=== PATIENT | female | born 1980 | race Caucasian/White ===

== ENCOUNTER 2022-10-28 20:05 | Emergency (ER) | payer MEDICAID ==
[~2022-10-28] VITALS: Ht 165.1 cm; Wt 78.0 kg
[2022-10-28 21:18] VITALS: BP 117/72
--- NOTE | 2022-10-28 21:22 | NUR ---
pt to bed 04.
--- NOTE | 2022-10-28 21:31 | NUR ---
c/o n/v/d and 04/26 lower abd pain x 2 days. per pt, started with epigastric abd pain yesterday, then lower abd pain now. denies pmhx or allergies.
--- NOTE | 2022-10-28 22:05 | NUR ---
Dr. Pedraza by bedside evaluating patient
[2022-10-28] MEDS ORDERED: ONDANSETRON 4 MG/2 ML VIAL IVP ONE (22:20)
[2022-10-28] MEDS ORDERED: MORPHINE SULFATE 4 MG/ML SYR IVP ONE (22:20)
[2022-10-28 22:31] LABS: BASOPHILS % (AUTO) 0.3 % (0.0-2.0); EOSINOPHILS % (AUTO) 0.2 % (0.0-4.0); HEMATOCRIT 41.4 % (36-48); LYMPHOCYTES # (AUTO) 0.8 K/uL (2.5-16.5); LYMPHOCYTES % (AUTO) 14.1 % (20.5-51.1); MEAN CORPUSCULAR HEMOGLOBIN 28 pg (27-31); MEAN CORPUSCULAR HGB CONC 34 g/dL (33-37); MEAN CORPUSCULAR VOLUME 83.7 fL (80-94); MONOCYTES # (AUTO) 0.8 K/uL (0.8-1.0); NEUTROPHILS # (AUTO) 3.8 K/uL (1.8-7.7); NEUTROPHILS % (AUTO) 71.4 % (42.2-75.2); PLATELET COUNT (AUTO) 280 K/uL (140-450); RED BLOOD CELL COUNT(AUTO) 4.95 MIL/uL (4.20-5.40); RED CELL DISTRIBUTION WIDTH 13.9 % (11.6-13.7); WHITE BLOOD COUNT (AUTO) 5.4 K/uL (4.8-10.8)
--- NOTE | 2022-10-28 22:35 | NUR ---
Pt taken to CT
[2022-10-28 22:43] LABS: ANION GAP 13.7 (8-16); CARBON DIOXIDE 28.7 mmol/L (21-32); CREATININE 0.9 mg/dL (0.6-1.3); POTASSIUM 3.4 mmol/L (3.5-5.1); TOTAL BILIRUBIN 0.3 mg/dL (0.0-1.0)
[2022-10-28 22:55] LABS: APPEARANCE,URINE CLOUDY (CLEAR); BILIRUBIN,URINE NEGATIVE (NEGATIVE); BLOOD, URINE 2+ (NEGATIVE); COLOR,URINE YELLOW (YELLOW); LEUKOCYTE ESTERASE ,URINE NEGATIVE (NEGATIVE); NITRITE, URINE NEGATIVE (NEGATIVE); UGLUCOSE NEGATIVE (NEGATIVE)
[2022-10-28 23:00] LABS: RBC,URINE 0-5 /HPF (0-5)
[2022-10-28] MEDS ORDERED: BEN10 PO (23:26)
[2022-10-28] MEDS ORDERED: ONDA-188 PO (23:26)
[2022-10-28] MEDS ORDERED: KETOROLAC 30 MG/ML VIAL IVP ONE (23:30)
--- NOTE | 2022-10-28 23:50 | NUR ---
Dr. Pedraza by bedside reevaluating patient.
[2022-10-29] MEDS ORDERED: CEPH-588 PO (00:09)
[2022-10-29 00:24] VITALS: BP 103/67
--- NOTE | 2022-10-29 00:24 | NUR ---
Patient discharged with v/s stable. Written and verbal after care instructions given and explained. New rx bentyl, keflex, zofran. Patient verbalized understanding. Ambulatory with steady gait. All questions addressed prior to discharge. Advised to follow up with PMD.
== END 2022-10-29 00:24 | disposition home or self-care (01) ==
LOC: MED 20:05
DX: R11.10 Vomiting, unspecified (principal); R19.7 Diarrhea, unspecified; N39.0 Urinary tract infection, site not specified; Z79.899 Other long term (current) drug therapy; Z79.2 Long term (current) use of antibiotics
CPT/HCPCS: 36415; 74176; 80053; 81001; 83690; 85025; 87086; 96374; 96375; 99285; J1885; J2270; J2405